=== PATIENT | male | born 1940 | race Caucasian/White ===

== ENCOUNTER 2016-09-23 08:34 | Outpatient (CLI) | payer MEDICARE, SELFPAY ==
[2016-09-23 10:12] LABS: ALT (SGPT) 22 U/L (0-55); AST (SGOT) 26 U/L (5-34); Alkaline Phosphatase 89 U/L (40-150); Anion Gap 17 mmol/L (10-20); BUN (Urea Nitrogen) 30 mg/dL (8.4-25.7); Bilirubin, Direct 0.1 mg/dL (0.1-0.3); Bilirubin, Total 0.3 mg/dL (0.2-1.2); Calc. Creatinine Clearance 0 mL/min (70-130); Calcium 9.4 mg/dL (7.8-10.44); Carbon Dioxide 21 mmol/L (23-31); Chloride 110 mmol/L (98-107); Estimated GFR-MDRD 58; LDL Cholesterol, Calculated 56 mg/dL; Protein, Total 7.2 g/dL (5.8-8.1)
== END 2016-09-23 08:35 | disposition home or self-care (01) ==
LOC: BURLAB 08:34
PROVIDERS: ATTEND Internal Medicine Cardiovascular Disease
DX: E78.00 Pure hypercholesterolemia, unspecified (principal)
CPT/HCPCS: 36415; 80048; 80061; 80076